=== PATIENT | female | born 1985 | race Two or more races ===

== ENCOUNTER 2017-09-25 17:42 | Emergency (ER) | payer SELFPAY ==
[~2017-09-25] VITALS: Ht 162.6 cm; Wt 70.8 kg
[2017-09-25 17:49] VITALS: BP 148/88
== END 2017-09-25 23:00 | disposition left against medical advice (07) ==
LOC: ER 17:45
DX: R20.0 Anesthesia of skin (principal); Z53.21 Procedure and treatment not carried out due to patient leaving prior to being seen by health care provider
CPT/HCPCS: 93005